=== PATIENT | male | born 1930 | race Caucasian/White ===

== ENCOUNTER 2019-05-12 19:01 | Emergency (ER) | payer SELFPAY ==
[2019-05-12 19:13] VITALS: BP 190/108
== END 2019-05-12 19:19 | disposition left against medical advice (07) | DRG 951 ==
LOC: ED 19:01 → LWOBS 19:18 → ED 19:18 → LWOBS 19:19
DX: Z53.21 Procedure and treatment not carried out due to patient leaving prior to being seen by health care provider (principal)